=== PATIENT | male | born 1930 | race Caucasian/White ===

== ENCOUNTER 2019-02-27 08:16 | Emergency (ER) | payer MEDICARE ==
[~2019-02-27] VITALS: Ht 180.3 cm; Wt 77.3 kg
[2019-02-27] MEDS ORDERED: CLOP75TA3 PO (08:28)
[2019-02-27] MEDS ORDERED: AMLO-511 PO (08:28)
[2019-02-27] MEDS ORDERED: UBID10CA6 PO (08:28)
[2019-02-27] MEDS ORDERED: ALLO100T PO (08:28)
[2019-02-27] MEDS ORDERED: DONE10TA8 PO (08:28)
[2019-02-27] MEDS ORDERED: [UNRECOGNIZED DRUG - CODE] PO (08:28)
[2019-02-27] MEDS ORDERED: LOSA25TA41 PO (08:28)
[2019-02-27] MEDS ORDERED: SIMV-260 PO (08:28)
[2019-02-27] MEDS ORDERED: MELA5TAB3 PO (08:28)
[2019-02-27 09:56] VITALS: BP 118/76
== END 2019-02-27 10:41 | disposition home or self-care (01) ==
LOC: EMS 08:19
DX: K14.0 Glossitis (principal); I10 Essential (primary) hypertension; Z79.899 Other long term (current) drug therapy